=== PATIENT | male | born 1955 | race Hispanic/Latino ===

== ENCOUNTER 2021-12-17 19:26 | Inpatient (IN) | payer OTHER ==
--- OUTSIDE RECORDS SUMMARY | 2021-12-17 19:32 | XMS REPORT | Continuity of Care Document ---
:1955 Author Organization [facility] t Address [address] Yin [address] [place] [id number] Care Team Providers Name Role Phone Alexandro Ty Lopez Attending Clinician Unavailable Chavez Hikcs Attending Clinician Unavailable Ajibade_O_AH Attending Clinician Unavailable Ige-Eliane_J_AH Attending Clinician Unavailable Ajibade_O_AH Admitting Clinician Unavailable Ige-Odunamisha_J_AH Admitting Clinician Unavailable Payers Payer Name Policy Type Policy Number Effective Date Expiration Date S [facility] - [id number] [id number] [facility]00 (MEDICARE REPLACEMENT/ADVANT AGE - HMO) Problems This patient has no known problems. Allergies, Adverse Reactions, Alerts This patient has no known allergies or adverse reactions. Medications This patient has no known medications. Procedures This patient has no known procedures. Encounters Start End Encounter Admission Attending Care Care Encounter Source Date/Time Date/Time Type Type Clinicians Facility Department ID 2021-10-25 Outpatient Alexandro [facility] [id number] Common 18:27:00 [facility] 2021-10-11 Outpatient Hicks, [facility] [id number] Common 16:43:[address] [facility] 2021-08-11 Outpatient Hicks, [facility] [id number] Common 09:42:[address] [facility] 2021-10-26 2021-10-26 ambulatory [facility] STLC [id number] Common 00:00:00 00:00:00 [facility] 2021-10-12 2021-10-12 ambulatory [facility] [id number] Common 00:00:00 00:00:00 [facility] 2021-10-12 2021-10-12 ambulatory [facility]LMLC [facility] [id number] Common 00:00:00 00:00:00 [facility] 2021-10-12 2021-10-12 ambulatory STLMLC STL[facility]C [id number] Common 00:00:00 00:00:00 [facility] 2021-09-08 2021-09-08 ambulatory STLMLC STL[facility]C [id number] Common 00:00:00 00:00:00 [facility] 2021-08-27 2021-08-27 ambulatory STLMLC STLMLC [id number] Common 00:00:00 00:00:00 [facility] 2021-08-11 2021-08-11 ambulatory STLMLC STLMLC [id number] Common 00:00:00 00:00:00 [facility] 2021-08-11 2021-08-11 ambulatory STLMLC STLMLC [id number] Common 00:00:00 00:00:00 [facility] 2021-08-11 2021-08-11 ambulatory STLMLC STLMLC [id number] Common 00:00:00 00:00:00 [facility] 2019-11-28 2019-11-28 Outpatient Ajibade_O_A VFP VFP [phone] [facility] 05:07:00 05:07:00 H [id number] 2019-11-28 2019-11-28 Outpatient Ajibade_O_A VFP VFP [phone] [facility] 05:07:00 05:07:00 H [id number] Family Pract[facility] e 2019-05-22 2019-05-22 Outpatient Ige-Odunuga VFP VFP [phone] [facility] 07:18:00 07:18:00 _Vin_AH [id number] Family Practic e 2019-05-22 2019-05-22 Outpatient Ige-Odunuga VFP VFP [phone] [facility] 07:18:00 07:18:00 _J_AH [id number] Family Practic e Results Test Description Test Time Test Comments Results Result Comments Source LIPID PANEL 2021-04-29 05:12:41 Test Item Value Reference Range Interpretation Comme nts CHOLESTEROL (test code = 2210) 243 MG/DL <200 H TRIGLYCERIDES (test code = 2232) 315 MG/DL <150 H HDL CHOLESTEROL (test code = 44 MG/DL >39 2220) CALC LDL CHOL (test code = 2237) 151 MG/DL <100 H NOTE: CALCULATED LDL IS BASED ON MILLY-BENNETT METHOD WHICHINCLUDES A DJUSTABLE TRIGLYCERIDE:VL DL CHOLESTEROL RATIO.THIS FACT OR VARIES BY MEASURED TRIGLY CERIDE AND NON-HDLCHOLESTE ROL CONCENTRATIONS WITH INCREASED CALCULATED LDL SEENIN HIGHER T RIGLYCERIDE OR LOWER NON-HDL S PECIMENS. FOR MOREINFORMATION , SEE CLIENT ANNOUNCEMENT AT [email or web address] RATIO LDL/HDL (test code = 3.43 RATIO <3.55 UNLESS OTHERWISE INDICATED, ALL 2238) TESTING PERFORM ED ATCLINICAL PATHOLOGY [facility] Access Network, [facility]. [address] [place] [address] , [place] [address] LABORATORY DIRE CTOR: ESTER MONTIEL M.D. KULDEEPIA NUMBER [id number] [facility] [place]. [id number]
--- NOTE | 2021-12-17 22:30 | RAD REPORT ---
EXAM DESCRIPTION: RAD - Chest Single View - 12/17/2021 10:10 pm CLINICAL HISTORY: COUGH COMPARISON: No comparisons FINDINGS: Lines: None. Lungs: No evidence of edema or pneumonia. Pleural: No significant pleural effusions or pneumothorax. Cardiac: The heart size is within normal limits. Mediastinum: Within normal limits. Bones: No acute fractures. Other: None IMPRESSION: No acute cardiopulmonary disease.
[2021-12-17] MEDS ORDERED: NA CHLORIDE 0.9% 1,000 ML ONE (22:45)
[2021-12-17 22:59] LABS: Absolute Lymphocytes (CBC) 1.5 K/uL (0.7-4.9); Hematocrit 42.8 % (39.6-49.0); Lymphocytes % 18.2 % (15.3-44.8); RBC Red Blood Cell Count 4.81 M/uL (4.33-5.43)
[2021-12-17 23:13] LABS: Protime INR 1.02
[2021-12-17 23:25] LABS: ALT/SGPT 23 U/L (12-78); AST/SGOT 14 U/L (15-37); Albumin 3.6 g/dL (3.4-5.0); Alkaline Phosphatase 103 U/L (45-117); BUN Blood Urea Nitrogen 33 mg/dL (7-18); Bicarbonate 28 mmol/L (21-32); Bilirubin Total 0.2 mg/dL (0.2-1.0); Glomerular Filtration Rate 33 ml/min (=/>90); Glucose Level 109 mg/dL (74-106); Lipase 70 U/L (73-393); Magnesium 1.7 mg/dL (1.8-2.4); NT PRO-BNP 92 pg/mL (<125); Potassium 4.2 mmol/L (3.5-5.1); Protein, Total 7.4 g/dL (6.4-8.2); Sodium Level 140 mmol/L (136-145); Troponin High Sensitivity 10.9 pg/mL (<58.9)
[2021-12-17 23:31] LABS: Bilirubin Direct < 0.1 mg/dL (0-0.2)
[2021-12-17 23:43] LABS: Urine Blood Negative (Negative); Urine Glucose Negative (Negative); Urine Protein 1+ (Negative); Urine Specific Gravity 1.025 (1.005-1.030); Urine pH 5.5 (5.0-7.0)
--- NOTE | 2021-12-17 23:53 | EDPHYS ---
Physician Documentation [facility] Name: Raphael Gibbs Age: 66 yrs Sex: Male : 1955 Arrival Date: 12/17/2021 Time: 19:33 Bed 24 Private MD: ED Physician Lincoln Saldana HPI: 12/17 23:44 This 66 yrs old Male presents to ER via Ambulatory with complaints of Blood candy Pressure Problem, Congestion. 23:44 weak , low bp, dizzy. Onset: The symptoms/episode began/occurred today. Severity of candy symptoms: At their worst the symptoms were mild in the emergency department the symptoms are unchanged. The patient has not experienced similar symptoms in the past. Historical: - Allergies: 20:20 No Known Allergies; vc1 - Home Meds: 20:20 metformin 1,000 mg oral tab 2 times per day [Active]; lisinopril-hydrochlorothiazide vc1 20-25 mg oral tab 1 tab once daily [Active]; amlodipine 5 mg tab 1 tab once daily [Active]; glipizide 5 mg Oral tr24 1 tab once daily [Active]; pioglitazone 30 mg oral tab 1 tab once daily [Active]; - PMHx: 20:20 Diabetes - NIDDM; Hyperlipidemia; Hypertension; vc1 - PSHx: 20:20 None; vc1 - Immunization history:: Adult Immunizations up to date. - Social history:: Smoking status: Patient/guardian denies using tobacco, but has a distant history of tobacco abuse. ROS: 23:46 Constitutional: Negative for fever, chills, and weight loss, Eyes: Negative for injury, candy pain, redness, and discharge, ENT: Negative for injury, pain, and discharge, Neck: Negative for injury, pain, and swelling, Cardiovascular: Negative for chest pain, palpitations, and edema, Respiratory: Negative for shortness of breath, cough, wheezing, and pleuritic chest pain, Abdomen/GI: Negative for abdominal pain, nausea, vomiting, diarrhea, and constipation, Back: Negative for injury and pain, : Negative for injury, bleeding, discharge, and swelling, MS/Extremity: Negative for injury and deformity, Skin: Negative for injury, rash, and discoloration, Psych: Negative for depression, anxiety, suicide ideation, homicidal ideation, and hallucinations, Allergy/Immunology: Negative for hives, rash, and allergies, Endocrine: Negative for neck swelling, polydipsia, polyuria, polyphagia, and marked weight changes, Hematologic/Lymphatic: Negative for swollen nodes, abnormal bleeding, and unusual bruising. 23:46 Neuro: Positive for dizziness, weakness. Exam: 23:46 Constitutional: This is a well developed, well nourished patient who is awake, alert, candy and in no acute distress. Head/Face: Normocephalic, atraumatic. Eyes: Pupils equal round and reactive to light, extra-ocular motions intact. Lids and lashes normal. Conjunctiva and sclera are non-icteric and not injected. Cornea within normal limits. Periorbital areas with no swelling, redness, or edema. ENT: Nares patent. No nasal discharge, no septal abnormalities noted. Tympanic membranes are normal and external auditory canals are clear. Oropharynx with no redness, swelling, or masses, exudates, or evidence of obstruction, uvula midline. Mucous membranes moist. Neck: Trachea midline, no thyromegaly or masses palpated, and no cervical lymphadenopathy. Supple, full range of motion without nuchal rigidity, or vertebral point tenderness. No Meningismus. Chest/axilla: Normal chest wall appearance and motion. Nontender with no deformity. No lesions are appreciated. Cardiovascular: Regular rate and rhythm with a normal S1 and S2. No gallops, murmurs, or rubs. Normal PMI, no JVD. No pulse deficits. Respiratory: Lungs have equal breath sounds bilaterally, clear to auscultation and percussion. No rales, rhonchi or wheezes noted. No increased work of breathing, no retractions or nasal flaring. Abdomen/GI: Soft, non-tender, with normal bowel sounds. No distension or tympany. No guarding or rebound. No evidence of tenderness throughout. Back: No spinal tenderness. No costovertebral tenderness. Full range of motion. Male : Normal genitalia with no discharge or lesions. Skin: Warm, dry with normal turgor. Normal color with no rashes, no lesions, and no evidence of cellulitis. MS/ Extremity: Pulses equal, no cyanosis. Neurovascular intact. Full, normal range of motion. Neuro: Awake and alert, GCS 15, oriented to person, place, time, and situation. Cranial nerves II-XII grossly intact. Motor strength 5/5 in all extremities. Sensory grossly intact. Cerebellar exam normal. Normal gait. Psych: Awake, alert, with orientation to person, place and time. Behavior, mood, and affect are within normal limits. 23:48 ECG was reviewed by the Attending Physician. candy Vital Signs: 20:17 BP 108 / 73; Pulse 101; Resp 18; Temp 98.3; Pulse Ox 100% ; Weight 158.76 kg; Height 5 vc1 ft. 8 in. (172.72 cm); Pain 0/10; 23:14 BP 111 / 59; Pulse 74; Resp 17; Pulse Ox 98% on R/A; hb 20:17 Body Mass Index 53.22 (158.76 kg, 172.72 cm) vc1 MDM: 21:54 Patient medically screened. candy 23:47 Differential diagnosis: cardiac arrhythmia, generalized weakness, hyperventilation, candy hypovolemia, idiopathic dizziness, near-syncope. Data reviewed: vital signs, nurses notes, lab test result(s), EKG, radiologic studies, CT scan, plain films. Data interpreted: night monitor: rate is 74 beats/min, rhythm is regular, Pulse oximetry: on room air is 98 %. Test interpretation: by ED physician or midlevel provider: ECG, plain radiologic studies. Counseling: I had a detailed discussion with the patient and/or guardian regarding: the historical points, exam findings, and any diagnostic results supporting the discharge/admit diagnosis, lab results, radiology results, the need for further work-up and treatment in the hospital. 12/17 21:53 Order name: Basic Metabolic Panel; Complete Time: 23:39 [facility] 12/17 21:53 Order name: CBC with Diff; Complete Time: 23:31 [facility] 12/17 21:53 Order name: LFT's; Complete Time: 23:39 [facility] 12/17 21:53 Order name: Magnesium; Complete Time: 23:39 [facility] 12/17 21:53 Order name: NT PRO-BNP; Complete Time: 23:39 [facility] 12/17 21:53 Order name: PT-INR; Complete Time: 23:31 [facility] 12/17 21:53 Order name: Troponin HS; Complete Time: 23:39 [facility] 12/17 21:53 Order name: XRAY Chest (1 view); Complete Time: 23:31 [facility] 12/17 21:53 Order name: Urine Microscopic Only; Complete Time: 00:36 [facility] 12/17 21:54 Order name: Lipase; Complete Time: 23:39 [facility] 12/17 23:40 Order name: CT Stone Protocol [facility] 12/17 23:43 Order name: Urine Dipstick-Ancillary; Complete Time: 23:56 EDMS 12/18 00:30 Order name: SARS RAPID tw5 12/17 21:53 Order name: EKG; Complete Time: 21:54 [facility] 12/17 21:53 Order name: Cardiac monitoring; Complete Time: 22:53 [facility] 12/17 21:53 Order name: EKG - Nurse/Tech; Complete Time: 22:53 [facility] 12/17 21:53 Order name: IV Saline Lock; Complete Time: 22:53 [facility] 12/17 21:53 Order name: Labs collected and sent; Complete Time: 22:53 [facility] 12/17 21:53 Order name: O2 Per Protocol; Complete Time: 22:53 [facility] 12/17 21:53 Order name: O2 Sat Monitoring; Complete Time: 22:53 [facility] 12/17 21:53 Order name: Urine Dipstick-Ancillary (obtain specimen); Complete Time: 23:50 [facility] EC:48 Rate is 84 beats/min. Rhythm is regular. QRS Dawn is Normal. [place] interval is prolonged candy at 212 msec. QRS interval is normal. QT interval is normal. No Q waves. T waves are Normal. No ST changes noted. Clinical impression: 1st degree heart block and No evidence of ischemia. Interpreted by me. Reviewed by me. Administered Medications: 22:53 Drug: NS 0.9% 1000 ml Route: IV; Rate: 1 bolus; Site: left antecubital; hb 23:40 Follow up: Response: No adverse reaction; IV Status: Completed infusion; IV Intake: hb 1000ml 12/18 00:08 Drug: Magnesium Sulfate 1 grams Route: IVPB; Infused Over: 1 hrs; Site: left hb antecubital; Disposition Summary: 12/17/21 23:52 Hospitalization Ordered Condition: Fair candy Problem: new candy Symptoms: have improved candy Bed/Room Type: Standard candy Provider: Javan Caraballo(12/17/21 23:54) laLidia Hospitalization Status: Inpatient Admission(12/17/21 23:55) candy Location: Telemetry/MedSurg (Inpatient)(12/18/21 01:54) tw5 Room Assignment: 202(12/18/21 01:54) tw5 Diagnosis - Hypotension, unspecified - resolved candy - Type 2 diabetes mellitus with hyperglycemia candy - Acute kidney failure, unspecified candy - Morbid (severe) obesity due to excess calories candy - Dehydration candy Forms: - Medication Reconciliation Form candy - SBAR form candy Signatures: Dispatcher [employer] EDLincoln Nolan MD MD cha Attema, Lee, WHEEL PRESSER-C WHEEL PRESSER-Cla1 Karen Oconnell, Birgit Gomez RN, RN RN hb Wood, Tiffany tw5 Lissy Reynoso RN RN vc1 Corrections: (The following items were deleted from the chart) 12/17 23:54 23:52 SherylTonny candy la1 23:55 23:52 Observation candy candy 23:55 23:52 Telemetry/MedSurg (observation) candy candy 23:55 23:52 candy candy 12/18 01:27 12/17 23:55 Telemetry/MedSurg (Inpatient) candy cg 12/18 01:27 12/17 23:55 candy cg 12/18 01:28 01:27 cg cg 01:54 01:27 [facility] ER HOLD cg tw5 01:54 01:28 ERHOLD- cg tw5
--- NOTE | 2021-12-17 23:53 | ER ---
Nurse's Notes [facility] Name: Raphael Gibbs Age: 66 yrs Sex: Male : 1955 Arrival Date: 12/17/2021 Time: 19:33 Bed 24 Private MD: Diagnosis: Hypotension, unspecified-resolved;Type 2 diabetes mellitus with hyperglycemia;Acute kidney failure, unspecified;Morbid (severe) obesity due to excess calories;Dehydration Presentation: 12/17 20:17 Chief complaint: Patient states: "I went outside today to use my powerwasher and I went vc1 to move it and all of a sudden I felt dizzy I started sweating. I went inside and checked my blood pressure and the top number was in the 90's.". Coronavirus screen: Vaccine status: Patient reports receiving the 2nd dose of the covid vaccine. Moderna congestion, cough unrelated to allergies, Client presents with at least one sign or symptom that may indicate coronavirus-19. Standard/surgical mask placed on the client. Provider contacted for isolation considerations. Ebola Screen: No symptoms or risks identified at this time. Initial Sepsis Screen: Does the patient meet any 2 criteria? HR > 90 bpm. No. Patient's initial sepsis screen is negative. Does the patient have a suspected source of infection? No. Patient's initial sepsis screen is negative. Risk Assessment: Do you want to hurt yourself or someone else? Patient reports no desire to harm self or others. Onset of symptoms was December 17, 2021 at 19:00. 20:17 Method Of Arrival: Ambulatory vc1 20:17 Acuity: MICHAEL 3 vc1 Triage Assessment: 20:20 General: Appears in no apparent distress. comfortable, Behavior is calm, cooperative, vc1 appropriate for age. Pain: Denies pain. Neuro: Level of Consciousness is awake, alert, obeys commands, Oriented to person, place, time, situation, Appropriate for age. Neuro: Reports dizziness. Cardiovascular: Reports diaphoresis, lightheadedness. Respiratory: Airway is patent Respiratory effort is even, unlabored, Respiratory pattern is regular, symmetrical, Breath sounds are clear. GI: No deficits noted. : No deficits noted. Derm: No deficits noted. Historical: - Allergies: 20:20 No Known Allergies; vc1 - Home Meds: 20:20 metformin 1,000 mg oral tab 2 times per day [Active]; lisinopril-hydrochlorothiazide vc1 20-25 mg oral tab 1 tab once daily [Active]; amlodipine 5 mg tab 1 tab once daily [Active]; glipizide 5 mg Oral tr24 1 tab once daily [Active]; pioglitazone 30 mg oral tab 1 tab once daily [Active]; - PMHx: 20:20 Diabetes - NIDDM; Hyperlipidemia; Hypertension; vc1 - PSHx: 20:20 None; vc1 - Immunization history:: Adult Immunizations up to date. - Social history:: Smoking status: Patient/guardian denies using tobacco, but has a distant history of tobacco abuse. Screenin:54 Abuse screen: Denies threats or abuse. Denies injuries from another. Nutritional hb screening: No deficits noted. Tuberculosis screening: No symptoms or risk factors identified. Fall Risk None identified. Assessment: 23:13 General: Appears in no apparent distress. Behavior is calm, cooperative. Pain: Denies hb pain. Neuro: Level of Consciousness is awake, alert, obeys commands, Oriented to person, place, time, situation. Cardiovascular: Patient's skin is warm and dry. Respiratory: Respiratory effort is even, unlabored, Respiratory pattern is regular, symmetrical. GI: No signs and/or symptoms were reported involving the gastrointestinal system. : No signs and/or symptoms were reported regarding the genitourinary system. EENT: No signs and/or symptoms were reported regarding the EENT system. Derm: Skin is pink, warm \\T\\ dry. Musculoskeletal: No signs and/or symptoms reported regarding the musculoskeletal system. Vital Signs: 20:17 BP 108 / 73; Pulse 101; Resp 18; Temp 98.3; Pulse Ox 100% ; Weight 158.76 kg; Height 5 vc1 ft. 8 in. (172.72 cm); Pain 0/10; 23:14 BP 111 / 59; Pulse 74; Resp 17; Pulse Ox 98% on R/A; hb 20:17 Body Mass Index 53.22 (158.76 kg, 172.72 cm) vc1 ED Course: 19:33 Patient arrived in ED. dt4 20:20 Triage completed. vc1 20:23 Arm band placed on left wrist. vc1 21:15 Birgit Morales RN is Primary Nurse. hb 21:46 Lincoln Saldana MD is Attending Physician. [facility] 22:12 XRAY Chest (1 view) In Process Unspecified. EDMS 22:50 Inserted saline lock: 20 gauge in left antecubital area, using aseptic technique. Blood hb collected. 23:14 Patient has correct armband on for positive identification. hb 23:50 Tonny Saucedo MD is Hospitalizing Provider. candy 23:50 Urine Microscopic Only Sent. tw5 23:54 Javan Caraballo MD is Hospitalizing Provider. la1 12/18 00:40 SARS RAPID Sent. tw5 00:50 SARS RAPID Sent. tw5 00:52 Primary Nurse role handed off by Birgit Morales RN tw5 00:52 Smiley Martínez is Primary Nurse. tw5 01:53 No provider procedures requiring assistance completed. Patient admitted, IV remains in tw5 place. Administered Medications: 12/17 22:53 Drug: NS 0.9% 1000 ml Route: IV; Rate: 1 bolus; Site: left antecubital; hb 23:40 Follow up: Response: No adverse reaction; IV Status: Completed infusion; IV Intake: hb 1000ml 12/18 00:08 Drug: Magnesium Sulfate 1 grams Route: IVPB; Infused Over: 1 hrs; Site: left hb antecubital; Medication: 12/17 23:14 VIS not applicable for this client. hb Intake: 23:40 IV: 1000ml; Total: 1000ml. hb Outcome: 23:52 Decision to Hospitalize by Provider. [facility] 12/18 01:52 Admitted to Med/surg accompanied by tech, via wheelchair, Report called to Called tw5 report to Sujit. Going to room 202 Condition: stable Instructed on the need for admit. 02:36 Patient left the ED. tw5 Signatures: Dispatcher [employer] EDMO Lincoln Saldana MD MD cha Attema, Lee, PONY ROLL FINISHER-C PONY ROLL FINISHER-Cla1 Birgit Morales RN RN hb Wood, Tiffany tw5 Lissy Reynoso RN RN vc1 Nerissa Vasquez dt4
[2021-12-17 23:59] LABS: Urine Bacteria <20 /HPF (<20); Urine Mucus Slight /HPF (None Seen); Urine RBC <5 /HPF (None Seen)
[2021-12-18] MEDS ORDERED: MAGNESIUM SULFATE 1 gm IVPB 1 GM/100 ML BAG IV ONE (00:13)
--- NOTE | 2021-12-18 00:46 | P.HP ---
Certification for Inpatient Patient admitted to: Inpatient With expected LOS: >2 Midnights Patient will require the following post-hospital care: None Practitioner: I am a practitioner with admitting privileges, knowledge of patient current condition, hospital course, and medical plan of care. Services: Services provided to patient in accordance with Admission requirements found in Title 42 Section 412.3 of the Code of Federal Regulations <Demetrius Cosby - Last Filed: 12/18/21 00:42> Patient History Date of Service: 12/18/21 Reason for admission: Acute kidney injury History of Present Illness: 58-year-old male with history of diabetes mellitus type [id number], hypertension and hyperlipidemia presents the emergency department for near syncope, hypotension. He reports that he was power washing when he began to feel weak/dizzy and was diaphoretic he checked his blood pressure at home and found to be around 90 systolic. He came to the emergency department for evaluation his blood pressures in the emergency department were in the low 100s over 60s he was initially tachycardic to 101 but this improved with IV fluids. His labs were significant for acute kidney injury with creatinine of 2.13, GFR 33 BUN of 33 his most recent creatinine was from 2017 is 1.11. ED provider wishes to admit patient for further evaluation and management of near syncope, hypotension, acute kidney injury. Patient reports periodic use of NSAIDs he denies any recent antibiotic use or IV contrast exposure. He reports he has previously seen a pollution control technician for hyperkalemia but he is unsure of what his kidney function baseline is. We will admit to the hospital service for further evaluation and management of acute kidney injury, near syncope. - Past Medical/Surgical History -: Diabetes mellitus type [id number] -: Hypertension -: Hyperlipidemia -: Left nephrectomy Psychosocial/ Personal History: Patient lives at home with his sister - Family History Mother -: Heart disease - Social History Smoking Status: Former smoker Alcohol use: No CD- Drugs: No Caffeine use: Yes Place of Residence: Home <Demetrius Cosby - Last Filed: 12/18/21 00:42> Date of Service: 12/18/21 <Javan Caraballo - Last Filed: 12/18/21 16:15> Allergies No Known Allergies Allergy (Verified 12/18/21 03:00) Review of Systems 10-point ROS is otherwise unremarkable Cardiovascular: Light Headedness, As per HPI <Demetrius Cosby - Last Filed: 12/18/21 00:42> Physical Examination - Physical Exam General: Alert, In no apparent distress, Oriented x3, Obese HEENT: Atraumatic, PERRLA, Mucous membr. moist/pink, EOMI, Sclerae nonicteric Neck: Supple, 2+ carotid pulse no bruit, No LAD, Without JVD or thyroid abnormal ity Respiratory: Clear to auscultation bilaterally, Normal air movement Cardiovascular: Regular rate/rhythm, Normal S1 S2 Gastrointestinal: Normal bowel sounds, No tenderness Musculoskeletal: No tenderness Integumentary: No rashes Neurological: Normal speech, Normal strength at 5/5 x4 extr, Normal tone, Normal affect - Studies Laboratory Data (last 24 hrs) 12/17/21 22:48: PT 11.2, INR 1.02 12/17/21 22:48: WBC 8.10, Hgb 14.6, Hct 42.8, Plt Count 281 12/17/21 22:48: Sodium 140, Potassium 4.2, BUN 33 H, Creatinine 2.13 H, Glucose 109 H, Magnesium 1.7 L, Total Bilirubin 0.2, AST 14 L, ALT 23, Alkaline Phosphatase 103, Lipase 70 L <Demetrius Cosby - Last Filed: 12/18/21 00:42> - Studies Laboratory Data (last 24 hrs) 12/17/21 22:48: PT 11.2, INR 1.02 12/17/21 22:48: WBC 8.10, Hgb 14.6, Hct 42.8, Plt Count 281 12/17/21 22:48: Sodium 140, Potassium 4.2, BUN 33 H, Creatinine 2.13 H, Glucose 109 H, Magnesium 1.7 L, Total Bilirubin 0.2, AST 14 L, ALT 23, Alkaline Phosphatase 103, Lipase 70 L <Javan Caraballo - Last Filed: 12/18/21 16:15> Assessment and Plan - Plan Assessment: Acute kidney injury Diabetes mellitus type [id number] Hypertension Hyperlipidemia Plan: Acute kidney injury: Status post left nephrectomy in 2013. Renal ultrasound ordered and pending, nephrology consult in place. We will hold patient's lisinopril/hydrochlorothiazide as well as metformin for the time being. He does admit to periodic use of NSAIDs last use yesterday morning. Counseled on avoidance of NSAIDs. Continue IV fluids tonight, appreciate further input from nephrology. Diabetes mellitus type [id number]: Hold metformin for now, A1c in the morning. Sliding scale insulin. Hypertension: Hold lisinopril/hydrochlorothiazide, continue amlodipine 5 mg daily Hyperlipidemia: Continue atorvastatin 40 mg daily. DVT PPX: Heparin Code status: Full Discharge Plan: Home Plan to discharge in: 48 Hours - Advance Directives Does patient have a Living Will: No Does patient have a Durable POA for Healthcare: No - Code Status/Comfort Care Code Status Assessed: Yes (Full code) Critical Care: No Time Spent Managing Pts Care (In Minutes): 70 <Demetrius Cosby - Last Filed: 12/18/21 00:42> Physician Review: Patient Assessed, Agree with Above Assessment and Plan <Javan Caraballo - Last Filed: 12/18/21 16:15>
[2021-12-18] MEDS ORDERED: ONDANSETRON 4 MG/2 ML VIAL IV PRN (01:17)
[2021-12-18] MEDS: Ringers Lactate 1,000 ML IV SCH ×3 (01:17→19:40)
[2021-12-18 01:23] LABS: SARS-CoV-2 Antigen Rapid Res Negative (Negative)
[2021-12-18] MEDS ORDERED: Ringers Lactate 1,000 ML IV ONE (01:31)
[2021-12-18 03:23] LABS: Absolute Lymphocytes (CBC) 1.3 K/uL (0.7-4.9); Hematocrit 41.2 % (39.6-49.0); Lymphocytes % 20.3 % (15.3-44.8); MCV 90.7 fL (80-100); MPV 8.9 fL (7.6-11.3); RBC Red Blood Cell Count 4.55 M/uL (4.33-5.43)
[2021-12-18 03:34] VITALS: BMI 39.4
[2021-12-18 03:50] LABS: Albumin 3.1 g/dL (3.4-5.0); Bilirubin Total 0.2 mg/dL (0.2-1.0); Potassium 4.2 mmol/L (3.5-5.1); Protein, Total 6.4 g/dL (6.4-8.2); Thyroid Stimulating Hormone 1.95 uIU/mL (0.360-3.740)
[2021-12-18] MEDS: INSULIN -REGULAR HUMAN 50 UNIT/0.5 ML ML SQ SCH ×4 (07:30→20:34)
--- NOTE | 2021-12-18 07:51 | RAD REPORT ---
EXAM DESCRIPTION: US - Renal Ultrasound-Complete - 12/18/2021 4:54 am CLINICAL HISTORY: Acute renal insufficiency COMPARISON: None FINDINGS: The right kidney measures 11 cm with a normal echotexture. Left nephrectomy Hydronephrosis is not seen. No gross abnormality of bladder IMPRESSION: No right hydronephrosis
[2021-12-18] MEDS: HEPARIN 5000 UNIT/ML 1 ML VIAL SQ SCH ×2 (08:30→20:27)
[2021-12-18] MEDS: AMLODIPINE 5 MG TAB PO SCH (08:30)
--- NOTE | 2021-12-18 13:34 | P.CNS ---
Date of Consult: 12/18/21 Reason for Consult: CRYS/ CKD Requesting Physician: Javan Caraballo Primary Care Provider: Dr. Ty Mc Chief Complaint: Acute kidney injury History of Present Illness: 58-year-old male with history of DM II, HTN and HLD presents the ED for near syncope, hypotension. He reports that he was power washing when he began to feel weak/dizzy and was diaphoretic he checked his blood pressure at home and found to be around 90 systolic. He came to the emergency department for evaluation his blood pressures in the emergency department were in the low 100s over 60s he was initially tachycardic to 101 but this improved with IV fluids. His labs were significant for acute kidney injury with creatinine of 2.13, GFR 33 BUN of 33 his most recent creatinine was from 2017 is 1.11. ED provider wishes to admit patient for further evaluation and management of near syncope, hypotension, acute kidney injury. Patient reports periodic use of NSAIDs he denies any recent antibiotic use or IV contrast exposure. He reports seeing a collar fuser (Dr. Swanson) for hyperkalemia but he is unsure of his kidney function baseline. He reports taking Aleve yesterday for knee pain despite being advised against NSAIDs. He states that he ran out of his Tylenol. No difficulties with urination. He is feeling better today. 23:44 This 66 yrs old Male presents to ER via Ambulatory with complaints of Blood candy Pressure Problem, Congestion. 23:44 weak , low bp, dizzy. Onset: The symptoms/episode began/occurred today. Severity of candy symptoms: At their worst the symptoms were mild in the emergency department the symptoms are unchanged. The patient has not experienced similar symptoms in the past. Allergies No Known Allergies Allergy (Verified 12/18/21 03:00) Home medications list reviewed: Yes Home Medications: Amlodipine [Norvasc] 5 mg PO DAILY 12/18/21 Atorvastatin Calcium 40 mg PO DAILY 12/18/21 Metformin HCl 1,000 mg PO BID 12/18/21 Pioglitazone HCl [Actos] 30 mg PO DAILY 12/18/21 glipiZIDE [Glipizide] 5 mg PO DAILY 12/18/21 hydroCHLOROthiazide [Hydrochlorothiazide] 25 mg PO DAILY 12/18/21 lisinopriL [Prinivil*] 1 tab PO DAILY 12/18/21 - Past Medical/Surgical History Diabetic: Yes -: Diabetes mellitus type [id number] -: Hypertension -: CKD III sp Left Nephrectomy due to a renal mass (Dr. Swanson) -: Hyperkalemia -: HLD -: Left nephrectomy Psychosocial/ Personal History: Patient lives at home with his sister - Family History Mother Medical History: Heart disease - Social History Alcohol use: No CD- Drugs: No Caffeine use: Yes Place of Residence: Home Review of Systems 10-point ROS is otherwise unremarkable Physical Examination Temp Pulse Resp BP Pulse Ox 97.2 F 65 18 145/63 H 100 12/18/21 12:00 12/18/21 12:00 12/18/21 12:00 12/18/21 12:00 12/18/21 12:00 General: In no apparent distress, Oriented x3, Cooperative Neck: Supple Respiratory: Clear to auscultation bilaterally Cardiovascular: No edema, Regular rate/rhythm Gastrointestinal: Soft and benign, Non-distended Musculoskeletal: No clubbing, No contractures Integumentary: No rashes, No cyanosis Neurological: Normal speech Laboratory Data (last 24 hrs) 12/17/21 22:48: PT 11.2, INR 1.02 12/17/21 22:48: WBC 8.10, Hgb 14.6, Hct 42.8, Plt Count 281 12/17/21 22:48: Sodium 140, Potassium 4.2, BUN 33 H, Creatinine 2.13 H, Glucose 109 H, Magnesium 1.7 L, Total Bilirubin 0.2, AST 14 L, ALT 23, Alkaline Phosphatase 103, Lipase 70 L Imagings Data: EXAM DESCRIPTION: US - Renal Ultrasound-Complete - 12/18/2021 4:54 am CLINICAL HISTORY: Acute renal insufficiency COMPARISON: None FINDINGS: The right kidney measures 11 cm with a normal echotexture. Left nephrectomy Hydronephrosis is not seen. No gross abnormality of bladder IMPRESSION: No right hydronephrosis EXAM DESCRIPTION: RAD - Chest Single View - 12/17/2021 10:10 pm CLINICAL HISTORY: COUGH COMPARISON: No comparisons FINDINGS: Lines: None. Lungs: No evidence of edema or pneumonia. Pleural: No significant pleural effusions or pneumothorax. Cardiac: The heart size is within normal limits. Mediastinum: Within normal limits. Bones: No acute fractures. Other: None IMPRESSION: No acute cardiopulmonary disease. Conclusions/Impression: CRYS likely due to hypovolemia CKD III with proteinuria Left nephrectomy -No NSAIDs -Continue IVF with LR -Hold HCTZ Hypomagnesemia -Replete prn HTN with CKD -Continue Amlodipine -Hold HCTZ -Restart low dose Lisinopril; monitor potassium DM II with CKD A1C 6.5 -No sugar diet -RISS -Hold Metformin Case reviewed with Dr. Caraballo Thank you kindly for the referral.
[2021-12-18] MEDS: lisinopriL 5 MG TAB PO SCH (14:23)
[2021-12-18] MEDS ORDERED: ATORVASTATIN 40 MG TAB PO SCH (21:00)
--- NOTE | 2021-12-18 22:57 | RAD REPORT ---
EXAM DESCRIPTION: CT - Stone Protocol - 12/18/2021 1:11 am CLINICAL HISTORY: 66 years, Male, chrissie COMPARISON: None. TECHNIQUE: Multiple transaxial tomograms of the abdomen and pelvis were performed from the lung base s to the symphysis pubis 3 mm slice thickness at 3 mm interval reconstruction, without administration of IV and oral contrast. Multiplanar reformats in the sagittal and coronal plane were generated and reviewed. This exam was performed according to our departmental dose-optimization protocol, which includes auto mated exposure control, adjustment of the mA and/or kV according to patient size and/or use of iterat haim reconstruction technique. FINDINGS: The lack of IV and oral contrast limits evaluation of solid organs, subtle lesions cannot be excluded. The lung bases demonstrate to be clear. Mild elevation of the right hemidiaphragm.. Grossly the unopacified liver, gallbladder, pancreas, spleen and adrenal glands demonstrate to be wit hin normal limits, no significant focal lesions were identified. There is small punctate areas of hepatic and splenic calcification corresponding to granulomas. The p ancreas is partially fatty replaced. The right kidney demonstrate to be unremarkable. The left kidney is absent. Small areas of calcificat ions are seen within the region of the left renal bed. There is no evidence for nephrolithiasis and /or hydronephrosis. No focal masses were demonstrate. Grossly the unopacified stomach, small bowel and large bowel demonstrate to be within normal limits. There is no evidence for bowel dilatation/or free air. The urinary bladder was partially distended with no gross abnormalities. The prostate gland is promin ent perhaps related to BPH The aorta demonstrate minimal atheromatous plaque formation extending into the aortic bifurcation/iliac arteries. There is no retroperitoneal lymphadenopathy. There is no evidence for ascites. The bone windows demonstrate degenerative changes at L2-L4. IMPRESSION: No evidence for nephrolithiasis and/or hydronephrosis. Absence of the left kidney perhaps suggesting previous left nephrectomy. Prominent prostate gland perhaps related to BPH. Old granulomatous disease. Electronically signed by: Enio Davidson MD 12/18/2021 1:43 AM CDT Due to temporary technical issues with the PACS/Fluency reporting system, reports are being signed by the in house radiologists without review as a courtesy to insure prompt reporting. The interpreting radiologist is fully responsible for the content of the report.
[2021-12-19 04:14] LABS: Bilirubin Total 0.4 mg/dL (0.2-1.0); Magnesium 1.7 mg/dL (1.8-2.4); Potassium 3.9 mmol/L (3.5-5.1); Protein, Total 6.3 g/dL (6.4-8.2); Uric Acid 7.8 mg/dL (3.5-7.2)
[2021-12-19] MEDS: Ringers Lactate 1,000 ML IV SCH (05:37)
[2021-12-19 06:25] LABS: Specific Gravity 1.008 (1.005-1.030); Urine Bacteria <20 /HPF (<20); Urine Bilirubin NEGATIVE (Negative); Urine Blood Negative (Negative); Urine Clarity Clear (Clear); Urine Color Colorless (Yellow); Urine Glucose NEGATIVE (Negative); Urine Mucus Slight /HPF (None Seen); Urine Protein NEGATIVE (Negative); Urine RBC <5 /HPF (None Seen); Urine Urobilinogen Normal (Normal); Urine pH 5.5 (5.0-7.0)
[2021-12-19] MEDS ORDERED: Magnesium Sulfate 2gm IVPB 2 G/50 ML BAG IV ONE (06:47)
[2021-12-19 06:56] LABS: UR PROTEIN < 5.0 mg/dL (<11.9); Urine Protein/Creatinine Ratio ND ratio (<0.15)
[2021-12-19] MEDS: INSULIN -REGULAR HUMAN 50 UNIT/0.5 ML ML SQ SCH (07:30)
[2021-12-19] MEDS: lisinopriL 5 MG TAB PO SCH (08:01)
[2021-12-19] MEDS: HEPARIN 5000 UNIT/ML 1 ML VIAL SQ SCH (08:01)
[2021-12-19] MEDS: AMLODIPINE 5 MG TAB PO SCH (08:01)
--- NOTE | 2021-12-19 08:13 | P.DS ---
Admission Date: 12/18/21 Discharge Date: 12/19/21 Primary Care Provider: Dr. Ty Mc Disposition: ROUTINE DISCHARGE Discharge Condition: GOOD Reason for Admission: Acute kidney injury Consultations: 1. Nephrology Hospital Course: DIAGNOSES: # KDIGO Stage II Acute Kidney Injury - likely Medication-Induced (NSAIDs, Metformin, Hydrochlorothiazide) # History of Renal Mass s/p Left Nephrectomy # Type II Diabetes Mellitus # Hypertension # Hyperlipidemia HOSPITAL COURSE: Mr. Chai Gibbs is a pleasant 66 year old male with a past medical history significant for a renal mass s/p left nephrectomy, type 2 diabetes mellitus, hypertension, and hyperlipidemia who was admitted to the [facility] on 12/18/2021 for an acute kidney injury. He was admitted to the Medicine service. Nephrology was consulted and he was seen by Dr. Giraldo. The offending medications were held and he was treated with IV fluids. His renal ultrasound revealed, "no right hydronephrosis." Over his hospitalization, his renal function improved significantly, with a creatinine trend of 2.13 -> 1.70 -> 1.05. Dr. Giraldo has cleared for discharge with close outpatient follow-up with Dr. Swanson. On 12/19/2021, he was seen on morning rounds and deemed medically stable for discharge. He was discharged with instructions to schedule follow-up appointments with his PCP (Dr. Mc) in 3-5 days and with his Water Chemist (Dr. Swanson) in 5-7 days. His metformin and hydrochlorothiazide were discontinued. His lisinopril dose was reduced from 20 mg to 5 mg. He was provided a new prescription for lisinopril. He was given the opportunity to ask questions and reported no further questions. Furthermore, all questions were answered to the best of my ability. Today, I personally spent 20 minutes on his case, of which greater than 50% of the time was spent in patient education, counseling, and coordination of care as described above. Vital Signs/Physical Exam: Temp Pulse Resp BP Pulse Ox 96.9 F 64 18 108/97 H 96 12/19/21 07:36 12/19/21 07:36 12/19/21 07:36 12/19/21 07:36 12/19/21 07:36 General: Alert, In no apparent distress, Oriented x3 HEENT: Atraumatic, PERRLA, Mucous membr. moist/pink, EOMI, Sclerae nonicteric Neck: Supple, JVD not distended Respiratory: Clear to auscultation bilaterally, Normal air movement Cardiovascular: No edema, Regular rate/rhythm, Normal S1 S2, No gallops, No rubs, No murmurs Gastrointestinal: Normal bowel sounds, Soft and benign, Non-distended, No tenderness, No rebound, No guarding Musculoskeletal: No clubbing Integumentary: No rashes Neurological: Normal speech, Cranial nerves 3-12 intact, Normal affect Laboratory Data at Discharge: WBC 6.60 K/uL (4.3-10.9) 12/18/21 03:15 Hgb 13.8 g/dL (13.6-17.9) 12/18/21 03:15 Hct 41.2 % (39.6-49.0) 12/18/21 03:15 Plt Count 242 K/uL (152-406) 12/18/21 03:15 PT 11.2 SECONDS (9.5-12.5) 12/17/21 22:48 INR 1.02 12/17/21 22:48 Sodium 139 mmol/L (136-145) 12/19/21 02:35 Potassium 3.9 mmol/L (3.5-5.1) 12/19/21 02:35 BUN 20 mg/dL (7-18) H 12/19/21 02:35 Creatinine 1.05 mg/dL (0.55-1.3) 12/19/21 02:35 Glucose 120 mg/dL (74-106) H 12/19/21 02:35 Uric Acid 7.8 mg/dL (3.5-7.2) H 12/19/21 02:35 Magnesium 1.7 mg/dL (1.8-2.4) L 12/19/21 02:35 Total Bilirubin 0.4 mg/dL (0.2-1.0) 12/19/21 02:35 AST 11 U/L (15-37) L 12/19/21 02:35 ALT 16 U/L (12-78) 12/19/21 02:35 Alkaline Phosphatase 78 U/L (45-117) 12/19/21 02:35 Lipase 70 U/L (73-393) L 12/17/21 22:48 Home Medications: RX: Amlodipine [Norvasc*] 5 mg PO DAILY 12/18/21 RX: Atorvastatin Calcium 40 mg PO DAILY 12/18/21 RX: Pioglitazone HCl [Actos] 30 mg PO DAILY 12/18/21 RX: glipiZIDE [Glipizide] 5 mg PO DAILY 12/18/21 RX: Lisinopril [Zestril] 5 mg PO DAILY #30 tab 12/19/21 New Medications: RX: Lisinopril [Zestril] 5 mg PO DAILY #30 tab Physician Discharge Instructions: 1. Please schedule a follow-up appointment with your PCP (Dr. Mc) in 3-5 days 2. Please schedule a follow-up appointment with Nephrology (Dr. Swanson) in 5-7 days - Please stop taking your metformin and hydrochlorothiazide. - Your lisinopril dose has been decreased from 20 mg to 5 mg. A new prescription has been sent to your pharmacy. Diet: ADA Activity: Ad pam Followup: Juan Daniel Swanson [ACTIVE - CAN ADMIT] - Ty Mc DO [Primary Care Provider] - Time spent managing pt's care (in minutes): 20
[2021-12-19 13:32] VITALS: BP 108/73; TEMP 98.3; O2SAT 100
--- NOTE | 2021-12-19 15:58 | EKG ---
Test Date: 2021-12-17 Test Time: 22:41:05 Campus Security Director: VANDANA MEASUREMENT RESULTS: Intervals: Rate: 84 ME: 212 QRSD: 86 QT: 356 QTc: 420 [place]: P: 104 ME: 212 QRS: 87 T: 92 INTERPRETIVE STATEMENTS: Sinus rhythm with 1st degree AV block Low voltage QRS Borderline ECG Compared to ECG 02/24/2017 09:30:27 First degree AV block now present Low QRS voltage now present Electronically Signed On 12-19-21 15:54:40 CDT by Rahat Mcintyre
== END 2021-12-19 09:23 | disposition home or self-care (01) | DRG 683 ==
LOC: ER 19:26 → ERHOLD 12-18 00:57 → 2ND 12-18 01:55
PROVIDERS: ADMIT Internal Medicine; ATTEND Internal Medicine
DX: N17.9 Acute kidney failure, unspecified (principal); Z68.43 Body mass index [BMI] 50.0-59.9, adult; E66.01 Morbid (severe) obesity due to excess calories; I12.9 Hypertensive chronic kidney disease with stage 1 through stage 4 chronic kidney disease, or unspecified chronic kidney disease; N18.30 Chronic kidney disease, stage 3 unspecified; E11.22 Type 2 diabetes mellitus with diabetic chronic kidney disease; E11.65 Type 2 diabetes mellitus with hyperglycemia; E78.5 Hyperlipidemia, unspecified; E86.0 Dehydration; E83.42 Hypomagnesemia; I95.9 Hypotension, unspecified; T39.395A Adverse effect of other nonsteroidal anti-inflammatory drugs [NSAID], initial encounter; T38.3X5A Adverse effect of insulin and oral hypoglycemic [antidiabetic] drugs, initial encounter; T50.2X5A Adverse effect of carbonic-anhydrase inhibitors, benzothiadiazides and other diuretics, initial encounter; Z90.5 Acquired absence of kidney; Z79.84 Long term (current) use of oral hypoglycemic drugs; Z87.891 Personal history of nicotine dependence; Z79.899 Other long term (current) drug therapy; Z20.822 Contact with and (suspected) exposure to COVID-19
CPT/HCPCS: 36415; 71045; 74176; 76377; 76770; 80048; 80053; 80076; 81001; 81003; 81015; 82550; 82570; 82947; 83036; 83690; 83735; 83880; 84156; 84439; 84443; 84484; 84550; 85025; 85610; 87811; 93005; 96361; 96374; 99285; J1644; J3475; J7030; J7120